=== PATIENT | female | born 1965 | race Caucasian/White ===

== ENCOUNTER 2022-03-16 22:07 | Emergency (ER) | payer BC ==
[~2022-03-16] VITALS: Ht 167 cm; Wt 68.0 kg
[~2022-03-16 22:07] MED LIST: AZIT250T PO; LEVO112T55 PO
--- NOTE | 2022-03-16 23:01 | Diagnostic Imaging Report ---
EXAMINATION: Right foot radiographs, 3 views. COMPARISON: None. HISTORY: 56-year-old female, right foot pain. 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 There is no identified acute fracture. There is no tibiotalar joint effusion. Joint spaces appear well-preserved. There is no radiopaque foreign body. IMPRESSION: Grossly unremarkable radiographs of the right foot. Dictated by: Dictated on workstation # [id number]
--- NOTE | 2022-03-16 23:03 | ED Lower Extremity ---
General Chief Complaint: Lower Extremity Stated Complaint: RIGHT FOOT PAIN Nursing Triage Note: c/o pain to top of right foot, denies injury Source: patient History of Present Illness Date Seen by Provider: Mar 16, 2022 Time Seen by Provider: 22:38 Initial Comments PT ARRIVES VIA POV FROM HOME C/O PAIN TO TOP OF RIGHT FOOT FOR THE LAST 4-5 HOURS STATES IT FEELS LIKE A CRAMP STATES SHE WORKED OUT IN HER LIVING ROOM AT 1400 TODAY STATES SHE "NEARLY SPRAINED HER ANKLE" WHEN SHE STEPPED ON A LOG NEAR THE FIREPLACE AT THE TIME BUT STATES SHE DOES NOT HAVE ANY PAIN IN HER ANKLE NO PARESTHESIAS OR MOTOR DEFICITS NO SWELLING OR BRUISING NO PRIOR PROBLEMS OR INJURIES TO THIS FOOT TOOK 1 ALEVE 1 HOUR AGO, THEN CAME HERE. ONLY MEDICAL PROBLEM IS HYPOTHYROIDISM. PCP: NONE Allergies and Home Medications Allergies Coded Allergies: No Known Drug Allergies (Unverified , 03/16/22) Patient Home Medication List Home Medication List Reviewed: Yes Azithromycin (Zithromax) 250 Mg Tablet, 250 MG PO UD Prescribed by: MARTY ARREDONDO on 11/03/16 1705 Levothyroxine Sodium (Levothyroxine Sodium) 112 Mcg Tablet, 112 MCG PO DAILY, (Reported) Entered as Reported by: ZACH DIA on 11/03/16 1553 Naproxen (Naproxen) 500 Mg Tablet.dr, 500 MG PO BID Prescribed by: SOUMYA MIMS on 03/16/222305 Tramadol HCl (Ultram) 50 Mg Tablet, 50 MG PO Q4H Prescribed by: SOUMYA MIMS on 03/16/222305 Review of Systems Constitutional: no symptoms reported Musculoskeletal: see HPI Skin: no symptoms reported Psychiatric/Neurological: No Symptoms Reported Past Dyuadfz-Wvzejk-Lfhepk Hx Patient Social History Tobacco Use?: No Substance use?: No Alcohol Use?: No Pt feels they are or have been: No Past Medical History Surgery/Hospitalization HX: hypothryoidism Surgeries: Yes Tonsillectomy Respiratory: No Cardiac: No Neurological: No Genitourinary: No Gastrointestinal: No Musculoskeletal: No Endocrine: Yes Hypothyroidsim HEENT: No (GLASSES) Cancer: No Psychosocial: No Integumentary: No Blood Disorders: No Physical Exam Vital Signs Vital Signs - First Documented 03/16/22 22:29 Temp 36.4 Pulse 77 Resp 16 B/P (MAP) 146/91 (109) Pulse Ox 96 O2 Delivery Room Air Capillary Refill : Less Than 3 Seconds Height, Weight, BMI Height: 5'6" Weight: 150lbs. oz. 68.617713id; 24.00 BMI Method:Stated General Appearance: WD/WN, no apparent distress, other (WEARING HIKING BOOTS ) Ankles: right ankle non-tender, right ankle normal inspection, right ankle normal range of motion, right ankle no evidence of injury Feet: right foot normal range of motion, right foot no evidence of injury, right foot other (TENDERNESS TO ENTIRE TOP OF FOOT AND ALONG THE MTP JOINTS ON PLANTAR ASPECT OF FOOT. NO EXTERNAL EVIDENCE OF TRAUMA, NO SWELLING OR BRUISING. MOTOR/SENSORY/VASCULAR INTACT. ) Procedures/Interventions Splinting and Joint Reduction : Immobilizers: Step Light Walker s/m/lg Progress/Results/Core Measures Results/Orders My Orders Orders - SOUMYA MIMS DO Foot, Right, 3 View (03/16/22 22:43) Steplite (03/16/22 23:07) Rx-Naproxen (Rx-Naprosyn) (03/16/22 23:07) Rx-Tramadol Hcl (Rx-Ultram) (03/16/22 23:07) Vital Signs/I&O 03/16/22 03/16/22 22:29 23:32 Temp 36.4 36.3 Pulse 77 75 Resp 16 16 B/P (MAP) 146/91 (109) 135/89 Pulse Ox 96 98 O2 Delivery Room Air Room Air Blood Pressure Mean: 109 Diagnostic Imaging Comments XRAYS RIGHT FOOT--PER RADIOLOGIST REPORT AT 2303 HISTORY: 56-year-old female, right foot pain. 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 There is no identified acute fracture. There is no tibiotalar joint effusion. Joint spaces appear well-preserved. There is no radiopaque foreign body. IMPRESSION: Grossly unremarkable radiographs of the right foot. Reviewed: Reviewed by Me Departure Impression Primary Impression: Right foot pain Disposition: HOME, SELF-CARE Condition: Stable Departure-Patient Inst. Decision time for Depature: 23:03 Referrals: NO,LOCAL PHYSICIAN (PCP) Primary Care Physician CALLIE VELASQUEZ MD Patient Instructions: Foot Sprain ED, Walking Boot Add. Discharge Instructions: ICE TO AREA AT 20 MINUTE INTERVALS ELEVATE FOOT MUCH POSSIBLE WEAR BOOT AT ALL TIMES FOLLOW UP WITH DR. VELASQUEZ NEXT WEEK FOR FURTHER CARE--CALL ON FRIDAY TO SCHEDULE APPOINTMENT All discharge instructions reviewed with patient and/or family. Voiced understanding. Scripts Tramadol HCl (Ultram) 50 Mg Tablet 50 MG PO Q4H for Pain, #10 TAB Prov: SOUMYA MIMS DO 03/16/22 Naproxen (Naproxen) 500 Mg Tablet. 500 MG PO BID, #20 TAB Prov: SOUMYA MIMS DO 03/16/22 SOUMYA MIMS DO Mar 16, 2022 23:03
[2022-03-16] MEDS ORDERED: TRAM-42 PO (23:06)
[2022-03-16] MEDS ORDERED: NAPR500T8 PO (23:06)
[2022-03-16] MEDS ORDERED: RX-NAPROXEN (NAPROSYN) 250 MG TAB PPK#4 PO STA (23:07)
[2022-03-16 23:32] VITALS: BP 135/89
== END 2022-03-16 23:34 | disposition home or self-care (01) ==
LOC: EDUNIT# 22:07 → ER 22:12
DX: M79.671 Pain in right foot (principal)
CPT/HCPCS: 73630; 99282; L2114